=== PATIENT | female | born 1940 | race Caucasian/White ===

== ENCOUNTER 2022-02-22 12:11 | Emergency (ER) | payer MEDICARE ==
[~2022-02-22] VITALS: Ht 152.4 cm; Wt 58.2 kg
[~2022-02-22 12:11] MED LIST: ALD25T PO; ALLO100T PO; CHL4T PO; COM10T PO; DIPH-186 PO; ESTR1PAT; FURO-150 PO; GLUC-133 PO; LACT1CAP73 PO; METO50TA7 PO; NORCO10T PO; OMEG1CAP46 PO; PROG100C3 PO; SYN0.1T PO; TRAZ-251 PO; TRAZ-91 PO
[2022-02-22] MEDS ORDERED: LIDOcaine 2% 10ml TOPICAL JELLY (Urojet) MM ONE (12:55)
--- NOTE | 2022-02-22 14:30 | NUR ---
SOAP SUDS ENEMA GIVEN WITH MINIMAL RESULT. PT STATES STILL FEELS LIKE SHE IS CONSTIPATED. DR JJ AWARE. STATES DO BLADDER SCAN AND WILL REEVAL.
--- NOTE | 2022-02-22 15:00 | NUR ---
BLADDER SCAN SHOWED >509CC OF URINE. DR JJ AWARE. STATES STRAIGHT CATH AND DISCHARGE PT HOME.
--- NOTE | 2022-02-22 15:30 | NUR ---
PT STRAIGHT CATHED FOR 550CC OF CLEAR YELLOW URINE. PT STILL STATES THAT SHE FEELS CONSTIPATED AND WOULD LIKE TO SPEAK WITH MD. DR JJ AWARE.
--- NOTE | 2022-02-22 15:51 | NUR ---
DR JJ INTO SPEAK WITH PT. INFOMRED PT THAT STOOL IS SOFT AND HE EXPECTS HER TO GO LATER ON THIS EVENING AND IF NOT TO FOLLOW UP WITH PCP AND POSSIBLE GI PHYSICIAN. PT VERBALIZED UNDERSTANDING BUT IS STILL HESITENT ON GOING HOME BUT AGREEABLE TO TRY
[2022-02-22 15:58] VITALS: BP 132/70
== END 2022-02-22 15:59 | disposition home or self-care (01) ==
LOC: ER 12:11
DX: K59.00 Constipation, unspecified (principal); N18.9 Chronic kidney disease, unspecified; Z88.6 Allergy status to analgesic agent; Z88.8 Allergy status to other drugs, medicaments and biological substances; Z79.899 Other long term (current) drug therapy; Z88.5 Allergy status to narcotic agent
CPT/HCPCS: 99283